=== PATIENT | female | born 1970 ===

== ENCOUNTER 2020-07-26 09:00 | Inpatient (IN) | payer OTHER ==
[~2020-07-26] VITALS: Ht 157.5 cm; Wt 78.5 kg
[2020-07-29] MEDS ORDERED: NORFLEX PO (11:44)
[2020-07-29] MEDS ORDERED: SINGULAIR10 MG PO (11:44)
[2020-07-29] MEDS ORDERED: FLUTI (11:45)
[2020-07-29] MEDS ORDERED: ZYRTEC10 M3 PO (11:45)
[2020-07-29] MEDS ORDERED: [UNRECOGNIZED DRUG - OTHER] (11:45)
[2020-08-04] MEDS ORDERED: OXYC1TAB9 PO (08:25)
[2020-08-04] MEDS ORDERED: HYOSCYAMINE0.125 M1 SL (08:25)
[2020-08-04] MEDS ORDERED: INTESTINEX680 M1 PO (08:25)
== END 2020-08-04 11:07 | disposition home or self-care (01) | DRG 331 ==
LOC: O/R 07-29 10:15 → SURH 08-01 10:09 → O/R 08-01 10:09 → SURH 08-01 10:15 → SURG 08-01 17:30 → SURH 08-01 21:47
PROVIDERS: ADMIT Surgery; ATTEND Surgery
PROC: 07BC4ZX Excision of Pelvis Lymphatic, Percutaneous Endoscopic Approach, Diagnostic (ICD-10-PCS; 2020-08-01)
PROC: 0DJD8ZZ Inspection of Lower Intestinal Tract, Via Natural or Artificial Opening Endoscopic (ICD-10-PCS; 2020-08-01)
PROC: 4A033R1 Measurement of Arterial Saturation, Peripheral, Percutaneous Approach (ICD-10-PCS; 2020-08-01)
PROC: 0DBN4ZZ Excision of Sigmoid Colon, Percutaneous Endoscopic Approach (ICD-10-PCS; principal; 2020-08-01 14:45)
PROC: 4A12X4Z Monitoring of Cardiac Electrical Activity, External Approach (ICD-10-PCS; 2020-08-02)
PROC: 3E0F7SF Introduction of Other Gas into Respiratory Tract, Via Natural or Artificial Opening (ICD-10-PCS; 2020-08-02)
DX: K57.32 Diverticulitis of large intestine without perforation or abscess without bleeding (principal); G47.33 Obstructive sleep apnea (adult) (pediatric); J45.20 Mild intermittent asthma, uncomplicated